=== PATIENT | female | born 1965 | race Caucasian/White ===

== ENCOUNTER 2016-12-02 12:40 | Emergency (ER) | payer OTHER ==
--- NOTE | 2016-12-02 15:36 | RAD ---
INDICATION: Cough COMPARISON: None TECHNIQUE: PA and lateral views of the chest were obtained. FINDINGS: The heart and mediastinum are normal in size and contour. Overlying the right hilum there is an asymmetric appearing 1.9 cm density. Otherwise the lungs are grossly clear. There is no evidence of large pleural effusion. Visualized bones are normal for the patient's age. There is no radiographic evidence of free air beneath the diaphragm IMPRESSION: THERE IS AN ASYMMETRIC 1.8 CM DENSITY OVERLYING THE RIGHT HILUM. THIS MAY SIMPLY BE A CONFLUENCE OF OVERLAPPING RIGHT HILAR VESSELS BUT A PULMONARY MASS OR ENLARGED LYMPH NODE IS NOT EXCLUDED ON THIS CHEST X-RAY ALONE. THERE IS NO PRIOR CHEST X-RAY AVAILABLE FOR COMPARISON TO DETERMINE CHRONICITY. IF PRIOR THORACIC IMAGING FROM ANOTHER INSTITUTION CAN BE MADE AVAILABLE THEN A COMPARISON CAN BE MADE TO COMMENT ON CHRONICITY. IF THERE IS CLINICAL CONCERN FOR A RIGHT HILAR MASS OR LYMPHADENOPATHY FURTHER CHARACTERIZATION COULD BE MADE WITH CONTRAST-ENHANCED CT OF THE CHEST.
[2016-12-02 15:37] VITALS: BP 142/90
--- NOTE | 2016-12-02 17:39 | UC ---
Respiratory Complaint HPI - HPI Summary HPI Summary: 51 year old female presents with cough. She had sinus infection and seen in [facility] 11/14/16 and treated with sinus infection with z pack and tessalon. still with cough. using albuterol and nyquill. no fever. - History of Current Complaint Chief Complaint: UCGeneralIllness Stated Complaint: COUGH,CHEST CONGESTION Time Seen by Provider: 12/02/16 14:36 Hx Obtained From: Patient Onset/Duration: Gradual Onset Timing: Constant Severity Initially: Moderate Severity Currently: Moderate Pain Intensity: 0 Pain Scale Used: 0-10 Numeric Character: Cough: Nonproductive Aggravating Factors: Nothing Alleviating Factors: Bronchodilator - Allergies/Home Medications Allergies/Adverse Reactions: Allergies Allergy/AdvReac Type Severity Reaction Status Date / Time Amoxicillin Allergy See Comment Verified 12/02/16 13:32 Morphine Allergy See Comment Verified 12/02/16 13:32 Home Medications: Home Medications Albuterol HFA INHALER* [Ventolin HFA Inhaler*] 2 puff INH Q4H PRN 12/02/16 [ History Confirmed 12/02/16] Lisinopril TAB* [Prinivil TAB 10 MG*] 10 mg PO DAILY 12/02/16 [History Confirmed 12/02/16] Loratadine [Claritin 10 MG CAP] 10 mg PO DAILY 12/02/16 [History Confirmed 12/02] Montelukast Sodium TAB* [Singulair 10 MG TAB*] 10 mg PO DAILY 12/02/16 [History Confirmed 12/02/16] Pravastatin (NF) [Pravachol (NF)] 10 mg PO 1700 12/02/16 [History Confirmed ] Venlafaxine EXT RELEASE CAP* [Effexor Xr CAP*] 37.5 mg PO DAILY 12/02/16 [ History Confirmed 12/02/16] metFORMIN* [Glucophage 500 MG TAB *] 500 mg PO BID 12/02/16 [History Confirmed 12/02/16] PMH/Surg Hx/FS Hx/Imm Hx Previously Healthy: Yes - Surgical History Surgical History: Yes Surgery Procedure, Year, and Place: HYSTERECTOMY. CHOLECYSTECTOMY. PT PREPARING FOR GASTRIC SLEEVE - Social History Occupation: Employed Full-time Alcohol Use: Rare Substance Use Type: None Smoking Status (MU): Former Smoker When Did the Patient Quit Smoking/Using Tobacco: 32 YRS Review of Systems Respiratory: Cough Is Patient Immunocompromised?: No All Other Systems Reviewed And Are Negative: Yes Physical Exam Triage Information Reviewed: Yes Appearance: Well-Appearing, No Pain Distress, Well-Nourished Vital Signs: Initial Vital Signs Temp 98.2 F 12/02/16 13:24 Pulse 65 12/02/16 13:24 Resp 18 12/02/16 13:24 BP 136/82 12/02/16 13:24 Pulse Ox 99 12/02/16 13:24 Vital Signs Reviewed: Yes Eye Exam: Normal ENT Exam: Normal Dental Exam: Normal Neck exam: Normal Neck: Positive: 1 Respiratory Exam: Normal Cardiovascular Exam: Normal Musculoskeletal Exam: Normal Neurological Exam: Normal Psychological Exam: Normal Skin Exam: Normal UC Diagnostic Evaluation - Laboratory O2 Sat by Pulse Oximetry: 98 Respiratory Course/Dx - Course Course Of Treatment: start advair as she states she has asthma and using the zo a lot and will start advair and f/u PCP in 3-4 days. of note xray reading after she left returned and indicates: potential mass -- f/u imaing needed -- she was called and copy sent to PCP - Differential Dx/Diagnosis Differential Diagnosis/HQI/PQRI: Bronchitis, Lower Resp Infection, Sinusitis Provider Diagnoses: URI with pulmonary nodule Discharge - Discharge Plan Condition: Good Disposition: HOME Prescriptions: Fluticasone-Salmeterol 250-50* [Advair Diskus 250-50*] 1 puff INH BID #1 diskus Patient Education Materials: Upper Respiratory Infection (ED) Referrals: Liset Fulton PA [Primary Care Provider] - 4 Days Additional Instructions: IMPRESSION: THERE IS AN ASYMMETRIC 1.8 CM DENSITY OVERLYING THE RIGHT HILUM. THIS MAY SIMPLY BE A CONFLUENCE OF OVERLAPPING RIGHT HILAR VESSELS BUT A PULMONARY MASS OR ENLARGED LYMPH NODE IS NOT EXCLUDED ON THIS CHEST X-RAY ALONE. THERE IS NO PRIOR CHEST X-RAY AVAILABLE FOR COMPARISON TO DETERMINE CHRONICITY. IF PRIOR THORACIC IMAGING FROM ANOTHER INSTITUTION CAN BE MADE AVAILABLE THEN A COMPARISON CAN BE MADE TO COMMENT ON CHRONICITY. IF THERE IS CLINICAL CONCERN FOR A RIGHT HILAR MASS OR LYMPHADENOPATHY FURTHER CHARACTERIZATION COULD BE MADE WITH CONTRAST-ENHANCED CT OF THE CHEST. -- call PCP for f/u -- pt called on phone of the findings
== END 2016-12-02 15:37 | disposition home or self-care (01) ==
LOC: UCCORT 12:40
DX: J06.9 Acute upper respiratory infection, unspecified (principal); R91.1 Solitary pulmonary nodule; Z88.1 Allergy status to other antibiotic agents; Z88.5 Allergy status to narcotic agent; Z87.891 Personal history of nicotine dependence
CPT/HCPCS: 71020; 99212; G0463